=== PATIENT | male | born 1955 | race Native Hawaiian/Other Pacific Islander ===

== ENCOUNTER 2019-09-11 07:58 | Outpatient (CLI) | payer OTHER ==
[~2019-09-11 07:58] MED LIST: BENZ100C8 PO; BYSTOLIC5 MG PO; LEVO500T PO; LISI10TA11 PO
== END 2019-09-11 20:11 | disposition home or self-care (01) ==
LOC: MRI 07:58
DX: M54.5 Low back pain (principal); M54.16 Radiculopathy, lumbar region